=== PATIENT | male | born 1955 | race American Indian/Alaskan Native ===

== ENCOUNTER 2018-07-15 13:53 | Emergency (ER) | payer BC, OTHER ==
--- NOTE | 2018-07-15 15:20 | EDM.PDOC ---
ED HPI GENERAL MEDICAL PROBLEM - General Chief Complaint: Respiratory Problem Stated Complaint: COUGH AND CONGESTION Time Seen by Provider: 07/15/18 14:29 Source of Information: Reports: Patient, RN Notes Reviewed - History of Present Illness INITIAL COMMENTS - FREE TEXT/NARRATIVE: 62 year old male with cough, nasal and sinus mariano for over a week. He is getting a lot of post nasal drainage, coughing up, out a lot of green phlegm. No fever, no major Villavicencio. Has had myalgias. - Related Data Allergies Allergy/AdvReac Type Severity Reaction Status Date / Time No Known Allergies Allergy Verified 07/15/18 14:20 Home Meds: Home Meds Cephalexin [Keflex] 500 mg PO QID #30 capsule 07/15/18 [Rx] Furosemide [Lasix] 20 mg PO DAILY 07/15/18 [History] Losartan [Cozaar] 25 mg PO DAILY 07/15/18 [History] Metoprolol Tartrate 25 mg PO DAILY 07/15/18 [History] Potassium Chloride 10 meq PO DAILY 07/15/18 [History] Spironolactone [Aldactone] 25 mg PO DAILY 07/15/18 [History] metFORMIN [Glucophage XR] 500 mg PO DAILY 07/15/18 [History] Past Medical History Cardiovascular History: Reports: Hypertension Musculoskeletal History: Reports: Other (See Below) Other Musculoskeletal History: right hand fracture and had a pins in it. and has been removed Endocrine/Metabolic History: Reports: Diabetes, Type II Social & Family History - Tobacco Use Smoking Status *Q: Never Smoker - Caffeine Use Caffeine Use: Reports: Coffee - Recreational Drug Use Recreational Drug Type: Reports: Marijuana/Hashish Recreational Drug Use Frequency: Rarely ED ROS GENERAL - Review of Systems Review Of Systems: See Below Constitutional: Reports: Chills. Denies: Fever HEENT: Reports: Rhinitis, Sinus Problem, Throat Pain (gone) Respiratory: Reports: Cough, Sputum. Denies: Shortness of Breath Cardiovascular: Denies: Chest Pain GI/Abdominal: Denies: Abdominal Pain, Nausea, Vomiting Musculoskeletal: Reports: Muscle Pain Skin: Denies: Rash Neurological: Reports: No Symptoms ED EXAM, GENERAL - Physical Exam Exam: See Below General Appearance: Alert, No Apparent Distress, Other (frquent cough) Eye Exam: Bilateral Eye: PERRL Ears: Normal External Exam Throat/Mouth: Normal Inspection Head: No: Facial Swelling Neck: Supple Respiratory/Chest: No Respiratory Distress, Lungs Clear, Normal Breath Sounds. No: Rhonchi, Wheezing Cardiovascular: Regular Rate, Rhythm Extremities: Normal Inspection, Normal Range of Motion Neurological: Alert, Oriented, No Motor/Sensory Deficits Skin Exam: Warm, Dry, Normal Color Course - Vital Signs Last Recorded V/S: Last Vital Signs Temp 98.3 F 07/15/18 14:27 Pulse 93 07/15/18 14:27 Resp 24 H 07/15/18 14:27 BP 172/83 H 07/15/18 14:27 Pulse Ox 91 L 07/15/18 14:27 - Re-Assessments/Exams Free Text/Narrative Re-Assessment/Exam: 07/16/18 14:32 CXR nl Departure - Departure Time of Disposition: 15:15 Disposition: Home, Self-Care 01 Condition: Fair Clinical Impression: Bronchitis Sinusitis Qualifiers: Sinusitis location: maxillary Chronicity: acute Recurrence: non-recurrent Qualified Code(s): J01.00 - Acute maxillary sinusitis, unspecified - Discharge Information Prescriptions: Cephalexin [Keflex] 500 mg PO QID #30 capsule Instructions: Sinusitis, Adult, Acute Bronchitis, Adult, [id number] Referrals: PCP,None [Primary Care Provider] - Forms: ED Department Discharge Additional Instructions: Vaporizer steam as needed, decongestant medication as needed, cephalexin 500 mg 4 times daily for 1 week or until gone, Phenergan with codeine cough medication at bedtime especially if needed for severe cough. Although clinic if not much better within 5-7 days as expected, return to ED as needed.
--- NOTE | 2018-07-15 15:36 | CR ---
Chest: Portable view of the chest was obtained. Comparison: No prior chest x-ray. Heart is slightly enlarged. Pulmonary vessels are slightly congested. Lungs otherwise are clear. Bony structures are grossly intact. Impression: 1. Findings suspicious for mild CHF. Diagnostic code #3
== END 2018-07-15 15:40 | disposition home or self-care (01) ==
LOC: JD.ED 13:53
DX: J01.00 Acute maxillary sinusitis, unspecified (principal); J40 Bronchitis, not specified as acute or chronic; I10 Essential (primary) hypertension; Z79.84 Long term (current) use of oral hypoglycemic drugs; Z79.899 Other long term (current) drug therapy
CPT/HCPCS: 71045; 71045-26; 99283

== ENCOUNTER 2024-10-11 07:15 | Day surgery (SDC) | payer MEDICARE, OTHER ==
[2024-10-11] MEDS: Polymyxin B/Trimethoprim 10 ML Bottle EYERT SCH (07:01)
[2024-10-11] MEDS: Brimonidine 0.2% Ophth Soln 5 ML Bottle EYERT SCH (07:05)
[2024-10-11] MEDS: Phenylephrine 2.5% Ophth Soln 2 ML Bot EYERT SCH (07:09)
[2024-10-11] MEDS: Tropicamide 1% Ophth Soln 3 ML Bottle EYERT SCH (07:14)
[2024-10-11] MEDS: Tetracaine HCl/PF 0.5% 4 ML Bottle EYEBOTH SCH (07:58)
[2024-10-11] MEDS: Lidocaine 1% PF 2 ML SDV INJECT SCH (08:08)
[2024-10-11] MEDS: Pilocarpine 4% Ophth Soln 15 ML Bot EYERT SCH (08:11)
[2024-10-11] MEDS: Cefuroxime 10 MG/ML SYRINGE EYERT SCH (08:11)
== END 2024-10-11 08:44 ==
LOC: JD.SDS 07:15
PROVIDERS: ATTEND Ophthalmology
DX: E11.36 Type 2 diabetes mellitus with diabetic cataract (principal); H21.81 Floppy iris syndrome; H21.41 Pupillary membranes, right eye; I11.0 Hypertensive heart disease with heart failure; I50.9 Heart failure, unspecified; Z79.84 Long term (current) use of oral hypoglycemic drugs; Z79.899 Other long term (current) drug therapy
CPT/HCPCS: 66982; A9270; J0697; J3490

== ENCOUNTER 2024-11-08 11:56 | Day surgery (SDC) | payer MEDICARE ==
[2024-11-08] MEDS: Phenylephrine 2.5% Ophth Soln 2 ML Bot EYELF SCH (07:34)
[2024-11-08] MEDS: Lidocaine 1% PF 2 ML SDV INJECT SCH (07:34)
[2024-11-08] MEDS: Tetracaine HCl/PF 0.5% 4 ML Bottle EYEBOTH SCH (07:34)
[2024-11-08] MEDS: Brimonidine 0.2% Ophth Soln 5 ML Bottle EYELF SCH (07:35)
[2024-11-08] MEDS: Polymyxin B/Trimethoprim 10 ML Bottle EYELF SCH (07:35)
[2024-11-08] MEDS: Cefuroxime 10 MG/ML SYRINGE EYELF SCH (07:35)
[2024-11-08] MEDS: Pilocarpine 4% Ophth Soln 15 ML Bot EYELF SCH (07:35)
[2024-11-08] MEDS: Tropicamide 1% Ophth Soln 3 ML Bottle EYELF SCH (12:55)
== END 2024-11-08 14:34 ==
LOC: JD.SDS 11:56
PROVIDERS: ATTEND Ophthalmology
DX: E11.36 Type 2 diabetes mellitus with diabetic cataract (principal); H25.812 Combined forms of age-related cataract, left eye; H52.31 Anisometropia; I11.0 Hypertensive heart disease with heart failure; I50.9 Heart failure, unspecified; E78.2 Mixed hyperlipidemia; Z79.899 Other long term (current) drug therapy
CPT/HCPCS: 66984; A9270; J0697; J3490